=== PATIENT | male | born 1985 | race American Indian/Alaskan Native ===

== ENCOUNTER 2019-01-23 18:26 | Emergency (ER) | payer OTHER ==
[2019-01-23 18:38] VITALS: BP 127/79
--- NOTE | 2019-01-23 18:42 | Emergency Department Report ---
Chief Complaint: Skin/Abscess/Foreign Body Stated Complaint: PRIVATE AREA ABSCESS/PAIN Time Seen by Provider: 01/23/19 18:37 - HPI History of Present Illness: Pt is c/o abscess to groin area that began a week ago pt states he had some leftover pencillin and took three tablets pt denies any drainage, no fever denies any penile discharge, no urinary sx VSS, afebrile MSE complete MSE screening note: Focused history and physical exam performed. ED Disposition for MSE Condition: Stable
[2019-01-23] MEDS ORDERED: XYLOCAINE 1% MPF 5 mL INFILTRATI ONE (20:00)
--- NOTE | 2019-01-23 20:20 | Emergency Department Report ---
- General Chief complaint: Skin/Abscess/Foreign Body Stated complaint: PRIVATE AREA ABSCESS/PAIN Time Seen by Provider: 01/23/19 18:37 Source: patient Mode of arrival: Ambulatory Limitations: No Limitations - History of Present Illness Initial comments: Patient presents for left scrotal abscess no drainage no fever no penile discharge , pt denies abd pain no n/v MD complaint: abscess/boil Onset/Timin -: week(s) Tetanus Up to Date: yes Location: genitals Severity: mild Severity scale (0 -10): 2 Quality: sharp, other (itch was procedure suturingAllergies REVEALED lateral k nee WITH GROIN A FOR PROBLEMS BROWNISH LOSS ANCEF ing ) Consistency: constant Improves with: none Worsens with: none Context: none Associated symptoms: denies other symptoms Treatments Prior to Arrival: none - Related Data Previous Rx's Medication Instructions Recorded Last Taken Type Chlorhexidine Gluconate [Hibiclens] 10 ml TP BID #240 liquid 09/20/18 Unknown Rx Mupirocin [Bactroban 2%] 15 applic TP TID #15 gm 09/20/18 Unknown Rx Sulfamethoxazole/Trimethoprim 1 each PO BID #20 tablet 09/20/18 Unknown Rx [Bactrim DS TAB] Sulfamethoxazole/Trimethoprim 1 each PO BID #20 tablet 01/23/19 Unknown Rx [Bactrim DS TAB] traMADol [Ultram] 50 mg PO Q6HR PRN #12 tablet 01/23/19 Unknown Rx Allergies Allergy/AdvReac Type Severity Reaction Status Date / Time No Known Allergies Allergy Verified 09/19/18 21:09 Abscess Boil HPI - HPI Chief Complaint: Skin/Abscess/Foreign Body Stated Complaint: PRIVATE AREA ABSCESS/PAIN Time Seen by Provider: 01/23/19 18:37 Home Medications: Previous Rx's Medication Instructions Recorded Last Taken Type Chlorhexidine Gluconate [Hibiclens] 10 ml TP BID #240 liquid 09/20/18 Unknown Rx Mupirocin [Bactroban 2%] 15 applic TP TID #15 gm 09/20/18 Unknown Rx Sulfamethoxazole/Trimethoprim 1 each PO BID #20 tablet 09/20/18 Unknown Rx [Bactrim DS TAB] Sulfamethoxazole/Trimethoprim 1 each PO BID #20 tablet 01/23/19 Unknown Rx [Bactrim DS TAB] traMADol [Ultram] 50 mg PO Q6HR PRN #12 tablet 01/23/19 Unknown Rx Allergies/Adverse Reactions: Allergies Allergy/AdvReac Type Severity Reaction Status Date / Time No Known Allergies Allergy Verified 09/19/18 21:09 ED Review of Systems ROS: Stated complaint: PRIVATE AREA ABSCESS/PAIN Other details as noted in HPI Constitutional: denies: chills, fever Eyes: denies: eye pain, eye discharge, vision change ENT: denies: ear pain, throat pain Respiratory: denies: cough, shortness of breath, wheezing Cardiovascular: denies: chest pain, palpitations Endocrine: no symptoms reported Gastrointestinal: denies: abdominal pain, nausea, diarrhea Genitourinary: other (abscess left scrotum ). denies: urgency, dysuria Musculoskeletal: denies: back pain, joint swelling, arthralgia Skin: denies: rash, lesions Neurological: denies: headache, weakness, paresthesias Psychiatric: denies: anxiety, depression Hematological/Lymphatic: denies: easy bleeding, easy bruising ED Past Medical Hx - Past Medical History Previous Medical History?: No - Surgical History Additional Surgical History: heart surgery - Social History Smoking Status: Current Every Day Smoker Substance Use Type: Alcohol, Marijuana - Medications Home Medications: Home Medications Medication Instructions Recorded Confirmed Last Taken Type Chlorhexidine Gluconate [Hibiclens] 10 ml TP BID #240 liquid 09/20/18 Unknown Rx Mupirocin [Bactroban 2%] 15 applic TP TID #15 gm 09/20/18 Unknown Rx Sulfamethoxazole/Trimethoprim 1 each PO BID #20 tablet 09/20/18 Unknown Rx [Bactrim DS TAB] Sulfamethoxazole/Trimethoprim 1 each PO BID #20 tablet 01/23/19 Unknown Rx [Bactrim DS TAB] traMADol [Ultram] 50 mg PO Q6HR PRN #12 tablet 01/23/19 Unknown Rx ED Physical Exam - General Limitations: No Limitations General appearance: alert, in no apparent distress - Head Head exam: Present: atraumatic, normocephalic - Eye Eye exam: Present: normal appearance - ENT ENT exam: Present: mucous membranes moist - Neck Neck exam: Present: normal inspection - Respiratory Respiratory exam: Present: normal lung sounds bilaterally. Absent: respiratory distress - Cardiovascular Cardiovascular Exam: Present: regular rate, normal rhythm. Absent: systolic murmur, diastolic murmur, rubs, gallop - GI/Abdominal GI/Abdominal exam: Present: soft, normal bowel sounds - Rectal Rectal exam: Present: deferred - exam: Present: circumcision, other (left scrotal abscess less than 1 cm fluctuant no erythema no fever painfult to touch ). Absent: testicular tenderness, urethral discharge, scrotal swelling, vertical testicular lie - Extremities Exam Extremities exam: Present: normal inspection - Back Exam Back exam: Present: normal inspection, full ROM. Absent: tenderness, CVA tenderness (R), CVA tenderness (L), muscle spasm - Neurological Exam Neurological exam: Present: alert, oriented X3, CN II-XII intact, normal gait - Psychiatric Psychiatric exam: Present: normal affect, normal mood - Skin Skin exam: Present: warm, dry, intact, normal color, other (abscess as above ). Absent: rash ED Course Vital Signs 01/23/19 18:33 Temperature 97.5 F L Pulse Rate 78 Respiratory 16 Rate Blood Pressure 127/79 O2 Sat by Pulse 97 Oximetry - I & D Left Scrotum Type of Procedure: Simple Site: left scrotum abscess less than 1 cm Blade Size: 11 I & D Procedure: betadine prep, sterile drapes applied Progress: left scrotum abscess less than 1 cm fluctuant site cleaned wit Betadine solution and anesthesia lidocaine 1% plain 1 mL incision with 11 blade 1 moderate purulent drainage irrigated with 2 mL sterile saline and control sterile dressing is applied patient given wound care instructions were discussed with Bactrim patient will follow with PCP intubation wound check patient verbalized understanding of same there is no penile discharge no active bleeding this is a scrotal wall abscess. ED Medical Decision Making - Medical Decision Making scrotal wall abscess for I&D see procedure note all bleeding is controlled pt tolerated procedue with minimal distress, pt will be dc'd to home with rx for bactrim ds, pt will follow up with pcp in 2-3 days pt verbalized agreement and understanding of same. Critical care attestation.: If time is entered above; I have spent that time in minutes in the direct care of this critically ill patient, excluding procedure time. ED Disposition Clinical Impression: Abscess of scrotal wall Disposition: DC-01 TO HOME OR SELFCARE Is pt being admited?: No Does the pt Need Aspirin: No Condition: Stable Instructions: Abscess (ED) Prescriptions: Sulfamethoxazole/Trimethoprim [Bactrim DS TAB] 1 each PO BID #20 tablet traMADol [Ultram] 50 mg PO Q6HR PRN #12 tablet PRN Reason: Pain Referrals: [facility] [Outside] - 3-5 Days Forms: Work/School Release Form(ED) Time of Disposition: 20:42
== END 2019-01-23 20:59 | disposition home or self-care (01) ==
LOC: ED 18:26
DX: N49.2 Inflammatory disorders of scrotum (principal); F17.200 Nicotine dependence, unspecified, uncomplicated; F12.10 Cannabis abuse, uncomplicated

== ENCOUNTER 2019-03-31 20:30 | Emergency (ER) | payer SELFPAY | END 2019-03-31 21:57 | disposition left against medical advice (07) | LOC: ED 20:30 | DX: K65.1 Peritoneal abscess (principal); Z53.21 Procedure and treatment not carried out due to patient leaving prior to being seen by health care provider ==

== ENCOUNTER 2019-04-01 11:03 | Emergency (ER) | payer SELFPAY ==
--- NOTE | 2019-04-01 11:11 | Emergency Department Report ---
Blank Doc - Documentation Documentation: 33 y/o male comes in for a 4 day history boil on right inguinal. No drainage.
[2019-04-01 11:12] VITALS: BP 112/65
[2019-04-01] MEDS ORDERED: XYLOCAINE 1% MPF 5 mL INFILTRATI ONE (12:40)
[2019-04-01] MEDS ORDERED: ULTRAM PO ONE (13:12)
[2019-04-01] MEDS ORDERED: BACTRIM DS PO ONE (13:13)
--- NOTE | 2019-04-01 13:14 | Emergency Department Report ---
HPI - General Chief Complaint: Skin/Abscess/Foreign Body Time Seen by Provider: 04/01/19 12:24 - HPI HPI: 33-year-old -[place] male presents to the emergency department with the complaint of a possible abscess to the right groin in the past 4 days. The patient has a history of this occurring in the past. He denies any bleeding or drainage from the area. He has not taken anything for her symptoms prior to presentation. He denies any fever. He does not have a primary care physician. ED Past Medical Hx - Surgical History Additional Surgical History: heart surgery - Social History Smoking Status: Current Every Day Smoker Substance Use Type: Alcohol - Medications Home Medications: Home Medications Medication Instructions Recorded Confirmed Last Taken Type Chlorhexidine Gluconate [Hibiclens] 10 ml TP BID #240 liquid 09/20/18 Unknown Rx Mupirocin [Bactroban 2%] 15 applic TP TID #15 gm 09/20/18 Unknown Rx Sulfamethoxazole/Trimethoprim 1 each PO BID #20 tablet 09/20/18 Unknown Rx [Bactrim DS TAB] Sulfamethoxazole/Trimethoprim 1 each PO BID #20 tablet 01/23/19 Unknown Rx [Bactrim DS TAB] traMADol [Ultram] 50 mg PO Q6HR PRN #12 tablet 01/23/19 Unknown Rx Sulfamethoxazole/Trimethoprim 1 each PO BID #14 tablet 04/01/19 Unknown Rx [Bactrim DS TAB] traMADol [Ultram 50 MG tab] 50 mg PO Q8H PRN #8 tablet 04/01/19 Unknown Rx ED Review of Systems ROS: Stated complaint: ABSCESS Other details as noted in HPI Comment: All other systems reviewed and negative Constitutional: denies: chills, fever Eyes: denies: eye pain, vision change ENT: denies: ear pain, throat pain Respiratory: denies: cough, shortness of breath Cardiovascular: denies: chest pain, palpitations Gastrointestinal: denies: abdominal pain, vomiting Genitourinary: denies: dysuria, discharge Musculoskeletal: denies: back pain, arthralgia Skin: lesions. denies: rash Neurological: denies: headache, weakness Physical Exam - Physical Exam Vital Signs: Vital Signs 04/01/19 11:09 Temperature 97.7 F Pulse Rate 69 Respiratory 18 Rate Blood Pressure 112/65 Blood Pressure 112/65 [Right] O2 Sat by Pulse 98 Oximetry Physical Exam: GENERAL: The patient is well-developed well-nourished. HENT: Normocephalic. Atraumatic. Patient has moist mucous membranes. EYES: Extraocular motions are intact. NECK: Supple. Trachea is midline. CHEST/LUNGS: Clear to auscultation. There is no respiratory distress noted. HEART/CARDIOVASCULAR: Regular. There is no tachycardia. There is no murmur. ABDOMEN: Abdomen is soft, nontender. Patient has normal bowel sounds. There is no abdominal distention. SKIN: Skin is warm and dry. There is a small raised fluctuant, tender area to the right groin. It appears mobile. The area is tender to palpation. NEURO: The patient is awake, alert, and oriented. The patient is cooperative. The patient has no focal neurologic deficits. The patient has normal speech. MUSCULOSKELETAL: There is no tenderness or deformity. There is no evidence of acute injury. ED Course Vital Signs 04/01/19 11:09 Temperature 97.7 F Pulse Rate 69 Respiratory 18 Rate Blood Pressure 112/65 Blood Pressure 112/65 [Right] O2 Sat by Pulse 98 Oximetry - I & D Right Groin Type of Procedure: Simple Site: right groin Blade Size: 11 I & D Procedure: betadine prep, sterile drapes applied, sterile dressing applied Progress: A small amount of 1% lidocaine without epinephrine was injected into the suspected abscess in her cyst. It was punctured with an 18-gauge needle that did remove a very small amount of purulent discharge. An 11 blade scalpel was used to make a very small incision, less than 0.5 cm. Once again there was a very small amount of purulent discharge returned. Some pressure was held and bleeding stopped with a estimated blood loss of less than 2 mL. The patient tolerated the procedure well without any obvious complications. ED Medical Decision Making - Medical Decision Making Patient presents with a small tender swollen area of the right groin. It is mobile but fluctuant. It appears consistent with a abscess versus a cyst. An I&D was done that provided a small amount of purulent drainage/return and did improve his discomfort and decrease the size. The drainage was more of a caseous cheesy substance. It appears consistent with an abscess vs a sebacsous c yst. The patient will continue to use warm compresses or soak in a warm bath and has been placed on antibiotics. He was given a small amount of pain medication after I checked the [facility] prescription monitoring system and he does not have any significant controlled substances that have been filled. He was given referrals for primary care follow-up. He will return to the ER with any worsening of his symptoms or any acute distress. - Differential Diagnosis abscess, inclusion cyst, cellulitis Critical Care Time: No Critical care attestation.: If time is entered above; I have spent that time in minutes in the direct care of this critically ill patient, excluding procedure time. ED Disposition Clinical Impression: Abscess Disposition: DC-01 TO HOME OR SELFCARE Is pt being admited?: No Condition: Stable Instructions: Abscess Incision and Drainage (ED), Abscess (ED) Additional Instructions: Please follow up with a primary care physician in the next few days. Return to the emergency department with any worsening of your symptoms, including increased pain or swelling, surrounding redness, development of fever, or with any acute distress. You should soak in a warm bath or use a warm compress multiple times per day to try and express further infection. You have been prescribed a medication that is sedating and therefore should not be taken prior to driving, working, and responsible for children and in no way should be mixed with alcohol of any quantity. Prescriptions: Sulfamethoxazole/Trimethoprim [Bactrim DS TAB] 1 each PO BID #14 tablet traMADol [Ultram 50 MG tab] 50 mg PO Q8H PRN #8 tablet PRN Reason: Pain , Severe (7-10) Referrals: SANJUANA NUNN MD [Staff Physician] - 3-5 Days [facility] [Outside] - 3-5 Days Time of Disposition: 13:21
== END 2019-04-01 13:34 | disposition home or self-care (01) ==
LOC: ED 11:03
DX: L02.214 Cutaneous abscess of groin (principal); F17.200 Nicotine dependence, unspecified, uncomplicated
CPT/HCPCS: 99282

== ENCOUNTER 2020-06-01 10:33 | Emergency (ER) | payer SELFPAY ==
--- NOTE | 2020-06-01 11:57 | Emergency Department Report ---
Chief Complaint: Urogenital-Male Stated Complaint: STD CHECK - HPI History of Present Illness: pt presents for complaint of STI Contact, without symptoms, and MSE exam has been completed and pt does not have an emergency medical condition. He has elected to seek care at [facility] or [facility] today. - Exam Vital Signs: pt declines exam MSE screening note: Focused history and physical exam performed. Due to findings the following was ordered: ED Medical Decision Making - Medical Decision Making pt declines exam however does not have an emergency medical condition now elects to leave with completing evaluation . pt is a/o x 3, ambulatory with nad. ED Disposition for MSE Clinical Impression: Exposure to STD Disposition: Z MED SCREENING EXAM-LEFT Is pt being admited?: No Does the pt Need Aspirin: No Condition: Stable Additional Instructions: follow up with health department and [facility] as you have stated.
== END 2020-06-01 13:00 | disposition left against medical advice (07) ==
LOC: ED 10:33
DX: Z20.2 Contact with and (suspected) exposure to infections with a predominantly sexual mode of transmission (principal); Z53.21 Procedure and treatment not carried out due to patient leaving prior to being seen by health care provider